=== PATIENT | female | born 1945 | race Caucasian/White ===

== ENCOUNTER → 2018-11-27 | Outpatient (CLI) | payer SELFPAY ==
[2018-11-27 10:10] LABS: APPEARANCE,URINE SLIGHTLY-CLOUDY; BILIRUBIN,URINE NEGATIVE (NEGATIVE); COLOR,URINE YELLOW; GLUCOSE, URINE NEGATIVE (NEGATIVE); KETONES,URINE TRACE mg/dL (NEGATIVE); LEUKOCYTE ESTERASE,URINE NEGATIVE (NEGATIVE); NITRITE,URINE NEGATIVE (NEGATIVE); PROTEIN,URINE NEGATIVE (NEGATIVE); URINE SPECIFIC GRAVITY 1.025; UROBILINOGEN,URINE NEGATIVE mg/dL (<2.0)
[2018-11-27 10:21] LABS: ANION GAP 10 (5-19); BLOOD UREA NITROGEN 21 mg/dL (7-20); CALCIUM 9.1 mg/dL (8.4-10.2); CARBON DIOXIDE 25 mmol/L (22-30); CHLORIDE 107 mmol/L (98-107); GLUCOSE 115 mg/dL (75-110); POTASSIUM 4.5 mmol/L (3.6-5.0); SODIUM 142.4 mmol/L (137-145); URIC ACID 5.7 mg/dL (2.5-7.5)
== END ==
LOC: LAB 09:34
PROVIDERS: ATTEND Internal Medicine Cardiovascular Disease
DX: I10 Essential (primary) hypertension (principal); I47.1 Supraventricular tachycardia; E03.9 Hypothyroidism, unspecified; R25.2 Cramp and spasm; Z79.899 Other long term (current) drug therapy; R11.2 Nausea with vomiting, unspecified; R10.9 Unspecified abdominal pain; N20.0 Calculus of kidney
CPT/HCPCS: 36415; 80048; 81001; 82306; 82330; 83735; 84443; 84550; 87086

== ENCOUNTER 2019-02-01 12:00 | Observation (INO) | payer MEDICARE, BC ==
--- NOTE | 2019-02-01 12:18 | ER Document Report ---
ED General - General Stated Complaint: GENERAL WEAKNESS Time Seen by Provider: 02/01/19 12:02 Notes: Patient is a 73 year old female with history of breast cancer in remission that presents to the emergency department for chief complaint of difficulty finding words. The patient was in the courthouse today, presenting patients to the religion teacher, and was having difficulty reading and finding words. This is not normal for her, and the religion teacher actually came into the emergency department, and verify that she was having difficulty speaking. It seemingly has improved although she is still at times during interview and history taking having some trouble finding words. She denies having any slurred speech, blurred vision, loss of vision, numbness, weakness or facial droop associated with this. She reports you to history of a brain metastases from breast cancer, that was treated with gamma knife, but has not had recurrence, and she actually had a tumor that was removed, or is doing well, but she does Fear she may have developed a new one, and that is our biggest concern at this time. She denies having Headache, nausea, chest pain, shortness of breath or difficulty breathing at this time. No other complaints. Past medical history: breast cancer with metastasis, small cell lung carcinoma past surgical history:mastectomy, brain surgery social history: can I use tobacco, alcohol or illicit drug use. Family History: Reviewed and noncontributory for presenting illness Allergies: Reviewed, see documented allergy list. REVIEW OF SYSTEMS: Other than noted above, the 12 point review of systems was reviewed with the patient and were negative, all pertinent findings are included in the HPI. PHYSICAL EXAMINATION: Vital signs reviewed, nursing noted reviewed. GENERAL: Well-appearing, well-nourished and in no acute distress. HEAD: Atraumatic, normocephalic. EYES: Eyes appear normal, extraocular movements intact, sclera anicteric, conjunctiva are normal. ENT: nares patent, oropharynx clear without exudates. Moist mucous membranes. NECK: Normal range of motion, supple without lymphadenopathy LUNGS: Breath sounds clear to auscultation bilaterally and equal. No wheezes rales or rhonchi. HEART: Regular rate and rhythm without murmurs ABDOMEN: Soft, nontender, normoactive bowel sounds. No rebound, guarding, or rigidity. No masses appreciated. EXTREMITIES: Nontender, good range of motion, no pitting or edema. NEUROLOGICAL: Mild intermittent expressive aphasia noted on exam. NIHSS: 1. Moves all extremities spontaneously Motor and sensory grossly intact on exam. PSYCH: Normal mood, normal affect. SKIN: Warm, Dry, normal turgor, no rashes or lesions noted on exposed skin TRAVEL OUTSIDE OF THE [place] IN LAST 30 DAYS: No - Related Data Allergies/Adverse Reactions: bee venom protein (honey bee) Allergy (Severe, Verified 02/01/19 14:19) Anaphylaxis acetaminophen [From Tylenol] Allergy (Verified 02/01/19 14:19) morphine Adverse Reaction (Verified 02/01/19 14:19) Hallucinations Past Medical History - Social History Smoking Status: Never Smoker Family History: Reviewed & Not Pertinent Physical Exam - Vital signs Vitals: Pulse Resp BP Pulse Ox 76 18 103/64 98 02/01/19 12:01 02/01/19 12:01 02/01/19 12:01 02/01/19 12:01 Course - Re-evaluation Re-evalutation: Patient seen and examined, Vital Signs reviewed, patient had mild intermittent expressive Aphasia on exam, but seemingly was improved promote was witnessed at the [facility]. she otherwise appeared well on exam, no other focal neurological deficits. Patient has worked out for possible Stroke versus TIA How you Didier, her CT of her head was negative, her work up otherwise was negative as well. I'm froy evaluation, the patient's not having any recurrence of symptoms, however I do feel the patient should be admitted for further evaluation including MRI and carotid duplex Imaging and possible echocardiogram, and risk factor stratification, it is still possible she may have a lesion on the brain that is causing her symptoms, which MRI would further delineate. I discussed this with the patient and the patient's who is at bedside, and they agree with this plan of care. Then discuss the case with the admitting physician assistant cross country coach, who agreed to see the patient and admit them for further evaluation. Head MRI 02/01/19 00:00 IMPRESSION: 1. No acute intracranial abnormality. 2. No evidence of recent CVA. 3. Mild chronic small vessel changes. EVIDENCE OF ACUTE STROKE: NO. Chest X-Ray 02/01/19 12:17 IMPRESSION: There is bandlike scarring or consolidation of the right upper lobe, possibly related to treated malignancy given the presence of a port catheter. There is no acute abnormality of the lungs. Comparison to prior imaging and/or CT would be helpful to further evaluate depending upon clinical presentation. Cardiomegaly. Head CT 02/01/19 12:17 IMPRESSION: No acute intracranial pathology. Small vessel white matter disease. EVIDENCE OF ACUTE STROKE: NO. Laboratory 02/01/19 02/01/19 02/01/19 12:12 12:12 12:12 WBC 4.1 RBC 3.87 Hgb 11.6 L Hct 35.3 L MCV 91 MCH 30.1 MCHC 33.0 RDW 15.2 H Plt Count 255 Seg Neutrophils % 71.6 Lymphocytes % 10.0 L Monocytes % 15.6 H Eosinophils % 2.1 Basophils % 0.7 Absolute Neutrophils 2.9 Absolute Lymphocytes 0.4 L Absolute Monocytes 0.6 Absolute Eosinophils 0.1 Absolute Basophils 0.0 PT 12.6 INR 0.94 APTT 26.7 Sodium 138.9 Potassium 4.7 Chloride 101 Carbon Dioxide 27 Anion Gap 11 BUN 32 H Creatinine 1.02 Est GFR ( Amer) > 60 Est GFR (Non-Af Amer) 53 L Glucose 104 Calcium 9.1 Total Bilirubin 0.3 Direct Bilirubin 0.2 Neonat Total Bilirubin Not Reportable Neonat Direct Bilirubin Not Reportable Neonat Indirect Bili Not Reportable AST 32 ALT 50 Alkaline Phosphatase 104 Troponin I Total Protein 6.9 Albumin 4.2 TSH 02/01/19 02/01/19 12:12 12:12 WBC RBC Hgb Hct MCV MCH MCHC RDW Plt Count Seg Neutrophils % Lymphocytes % Monocytes % Eosinophils % Basophils % Absolute Neutrophils Absolute Lymphocytes Absolute Monocytes Absolute Eosinophils Absolute Basophils PT INR APTT Sodium Potassium Chloride Carbon Dioxide Anion Gap BUN Creatinine Est GFR ( Amer) Est GFR (Non-Af Amer) Glucose Calcium Total Bilirubin Direct Bilirubin Neonat Total Bilirubin Neonat Direct Bilirubin Neonat Indirect Bili AST ALT Alkaline Phosphatase Troponin I < 0.012 Total Protein Albumin TSH < 0.01 L - Vital Signs Vital signs: Temp Pulse Resp BP Pulse Ox 97.7 F 79 20 124/72 98 02/01/19 20:33 02/01/19 20:33 02/01/19 20:33 02/01/19 20:33 02/01/19 20:33 - Laboratory Result Diagrams: 02/01/19 12:12 02/01/19 12:12 Laboratory results interpreted by me: 02/01/19 02/01/19 02/01/19 12:12 12:12 12:12 Hgb 11.6 L Hct 35.3 L RDW 15.2 H Lymphocytes % 10.0 L Monocytes % 15.6 H Absolute Lymphocytes 0.4 L BUN 32 H Est GFR (Non-Af Amer) 53 L TSH < 0.01 L - EKG Interpretation by Me Additional EKG results interpreted by me: EKG demonstrates sinus rhythm with a ventricular rate of 66 bpm, normal axis, normal intervals, no evidence of acute ischemia in this EKG, no prior available for comparison at this time. Discharge - Discharge Clinical Impression: Expressive aphasia Condition: Stable Disposition: ADMITTED INPATIENT Admitting Provider: Jose Miguel (Hospitalist) - Edwin Osullivan PA-C Unit Admitted: [facility]
[2019-02-01 12:32] LABS: ABSOLUTE EOSINOPHILS # (AUTO) 0.1 10^3/uL (0.0-0.6); ABSOLUTE LYMPHOCYTES (AUTO) 0.4 10^3/uL (0.5-4.7); ABSOLUTE MONOCYTES (AUTO) 0.6 10^3/uL (0.1-1.4); ABSOLUTE NEUT (AUTO) 2.9 10^3/uL (1.7-8.2); BASOPHILS % (AUTO) 0.7 % (0-2); EOSINOPHILS % (AUTO) 2.1 % (0-6); HEMATOCRIT 35.3 % (36.0-47.0); HEMOGLOBIN 11.6 g/dL (12.0-15.5); MEAN CORPUSCULAR HEMOGLOBIN 30.1 pg (27.0-33.4); MEAN CORPUSCULAR VOLUME 91 fl (80-97); MONOCYTES % (AUTO) 15.6 % (3-13); PLATELET COUNT 255 10^3/uL (150-450); RED BLOOD COUNT 3.87 10^6/uL (3.72-5.28); RED CELL DISTRIBUTION WIDTH 15.2 % (11.5-14.0); SEGMENTED NEUTROPHILS % (AUTO) 71.6 % (42-78); TOTAL CELLS COUNTED % (AUTO) 100 %; WHITE BLOOD COUNT 4.1 10^3/uL (4.0-10.5)
[2019-02-01 12:38] LABS: INTERNATIONAL RATION (INR) 0.94; PROTHROMBIN TIME 12.6 SEC (11.4-15.4)
[2019-02-01 12:39] LABS: PARTIAL THROMBOPLASTIN TIME 26.7 SEC (23.5-35.8)
--- NOTE | 2019-02-01 12:51 | RADIOLOGY REPORT (SQ) ---
EXAM DESCRIPTION: CHEST SINGLE VIEW COMPLETED DATE/TIME: 02/01/2019 12:40 pm REASON FOR STUDY: expressive aphasia, transient COMPARISON: Cardiomegaly. EXAM PARAMETERS: NUMBER OF VIEWS: One view. TECHNIQUE: Single frontal radiographic view of the chest acquired. RADIATION DOSE: NA LIMITATIONS: None. FINDINGS: LUNGS AND PLEURA: There is bandlike suprahilar scarring or consolidation of the right uppe r lobe. MEDIASTINUM AND HILAR STRUCTURES: No masses. Contour normal. HEART AND VASCULAR STRUCTURES: Cardiomegaly. BONES: No acute findings. HARDWARE: None in the chest. OTHER: Right chest port catheter. IMPRESSION: There is bandlike scarring or consolidation of the right upper lobe, possibly related to treated malignancy given the presence of a port catheter. There is no acute abnormality of the lung s. Comparison to prior imaging and/or CT would be helpful to further evaluate depending upon clinica l presentation. Cardiomegaly. TECHNICAL DOCUMENTATION: JOB ID: [id number] [employer]- All Rights Reserved Reading location - IP/workstation name: [email or web address]
[2019-02-01 12:56] LABS: ALBUMIN 4.2 g/dL (3.5-5.0); ALKALINE PHOSPHATASE 104 U/L (38-126); ANION GAP 11 (5-19); ASPARTATE AMINO TRANSFERASE 32 U/L (14-36); BILIRUBIN,DIRECT 0.2 mg/dL (0.0-0.4); BILIRUBIN,TOTAL 0.3 mg/dL (0.2-1.3); BLOOD UREA NITROGEN 32 mg/dL (7-20); CALCIUM 9.1 mg/dL (8.4-10.2); CARBON DIOXIDE 27 mmol/L (22-30); CHLORIDE 101 mmol/L (98-107); GLUCOSE 104 mg/dL (75-110); POTASSIUM 4.7 mmol/L (3.6-5.0); TOTAL PROTEIN 6.9 g/dL (6.3-8.2)
--- NOTE | 2019-02-01 12:57 | RADIOLOGY REPORT (SQ) ---
EXAM DESCRIPTION: CT HEAD WITHOUT COMPLETED DATE/TIME: 02/01/2019 12:45 pm REASON FOR STUDY: expressive aphasia, transient COMPARISON: None. TECHNIQUE: Axial images acquired through the brain without intravenous contrast. Images reviewed wi th bone, brain and subdural windows. Additional sagittal and coronal reconstructions were generated. Images stored on PACS. All CT scanners at this facility use dose modulation, iterative reconstruction, and/or weight based d osing when appropriate to reduce radiation dose to as low as reasonably achievable (ALARA). [facility]: Dose Right [facility]: CareDose [facility]: Dose Right [facility]: Teradose 4D [facility]: [email or web address] RADIATION DOSE: CT Rad equipment meets quality standard of care and radiation dose reduction techniq ues were employed. CTDIvol: 53.2 mGy. DLP: 1017 mGy-cm. mGy. LIMITATIONS: None. FINDINGS: VENTRICLES: Normal size and contour. CEREBRUM: No masses. No hemorrhage. No midline shift. No evidence for acute infarction. Few scatte red areas of low density in the white matter most likely chronic small vessel ischemic changes. CEREBELLUM: No masses. No hemorrhage. No alteration of density. No evidence for acute infarction. EXTRAAXIAL SPACES: No fluid collections. No masses. ORBITS AND GLOBE: No intra- or extraconal masses. Normal contour of globe without masses. CALVARIUM: No fracture. PARANASAL SINUSES: No fluid or mucosal thickening. SOFT TISSUES: No mass or hematoma. OTHER: No other significant finding. IMPRESSION: No acute intracranial pathology. Small vessel white matter disease. EVIDENCE OF ACUTE STROKE: NO. COMMENT: Quality ID # [id number]: Final reports with documentation of one or more dose reduction techniques (e.g., Automated exposure control, adjustment of the mA and/or kV according to patient size, use of iterative reconstruction technique) TECHNICAL DOCUMENTATION: JOB ID: [id number] [employer]- All Rights Reserved Reading location - IP/workstation name: [email or web address]
--- NOTE | 2019-02-01 13:18 | EKG REPORT ---
SEVERITY:- NORMAL ECG - SINUS RHYTHM : Confirmed by: Sadi Culver MD 01-Feb-2019 13:17:47
[2019-02-01] MEDS ORDERED: MAGNESIUM HYDROXIDE SUSP 30 ML UDCUP PO PRN (16:50)
[2019-02-01] MEDS ORDERED: ONDANSETRON 4 MG TAB.RAPDIS PO PRN (16:50)
[2019-02-01] MEDS ORDERED: ASPIRIN 325 MG TABLET PO ONE (17:09)
[2019-02-01] MEDS ORDERED: LORAZEPAM 1 MG TABLET PO PRN ×3 (17:10→18:27)
[2019-02-01] MEDS ORDERED: CYCLOBENZAPRINE HCL 10 MG TABLET PO PRN (17:20)
--- NOTE | 2019-02-01 17:54 | PDOC H&P ---
History of Present Illness Admission Date/PCP: 02/01/19 15:02 JOI VALLE MD 02/01/2019 she is admitted today for TIA. Patient complains of: Expressive a aphasia this morning, dysarthria, that lasted 2 to 3 hours. History of Present Illness: GIANFRANCO LAGOS is a 73 year old female who was at work this morning at [employer], when she had an episode where she was unable to say what she wanted to say. Patient states that when she was talking that some of it was "garbled". Patient also states that she had difficulty reading because the print appeared to be jumbled. Patient denies any weakness of extremities, denies headache, no nausea no vomiting, no photophobia no diplopia. No nuchal rigidity. No chest pain no shortness of breath. In the emergency room the symptoms have resolved about 98% but she will occasionally say a word that is slurred. This is a new complaint for the patient. She is in no distress now. Past Medical History Cardiac Medical History: Reports: Hypertension Endocrine Medical History: Reports: Hypothyroidism Malignancy Medical History: Reports: Breast Cancer, Lung Cancer GI Medical History: Reports: None Psychiatric Medical History: Reports: None Traumatic Medical History: Reports: None Past Surgical History Past Surgical History: Reports: Mastectomy, Thyroidectomy, Other - Brain tumor removed Social History Smoking Status: Never Smoker Family History Parental Family History Reviewed: No Children Family History Reviewed: No Sibling(s) Family History Reviewed.: No Medication/Allergy Home Medications: Amlodipine Besylate [Norvasc 5 mg Tablet] 5 mg PO DAILY 02/01/19 Benazepril HCl [Lotensin 20 mg Tablet] 20 mg PO BID 02/01/19 Carvedilol [Coreg 25 mg Tablet] 25 mg PO Q12 02/01/19 Cyclobenzaprine HCl [Flexeril 10 mg Tablet] 10 mg PO DAILYP PRN 02/01/19 Hydrochlorothiazide [Hydrodiuril 12.5 mg Tablet] 12.5 mg PO DAILY 02/01/19 Levothyroxine Sodium [Synthroid 0.1 mg Tablet] 0.1 mg PO Q6AM 02/01/19 Mirabegron [Myrbetriq] 50 mg PO DAILY 02/01/19 Allergies/Adverse Reactions: bee venom protein (honey bee) Allergy (Severe, Verified 02/01/19 14:19) Anaphylaxis acetaminophen [From Tylenol] Allergy (Verified 02/01/19 14:19) morphine Adverse Reaction (Verified 02/01/19 14:19) Hallucinations Review of Systems Constitutional: ABSENT: chills, fever(s), headache(s), weight gain, weight loss Eyes: ABSENT: visual disturbances Breasts: PRESENT: as per HPI Cardiovascular: PRESENT: as per HPI Respiratory: PRESENT: as per HPI Gastrointestinal: PRESENT: as per HPI Neurological: PRESENT: abnormal speech, confusion Psychiatric: PRESENT: as per HPI Physical Exam Vital Signs: Temp Pulse Resp BP Pulse Ox 76 20 126/70 H 95 02/01/19 12:01 02/01/19 15:01 02/01/19 15:01 02/01/19 15:01 General appearance: PRESENT: no acute distress Head exam: PRESENT: atraumatic, normocephalic Eye exam: PRESENT: conjunctiva pink, EOMI, PERRLA. ABSENT: scleral icterus Neck exam: ABSENT: carotid bruit, JVD, lymphadenopathy, thyromegaly Respiratory exam: PRESENT: clear to auscultation anca. ABSENT: rales, rhonchi, wheezes Cardiovascular exam: PRESENT: RRR. ABSENT: diastolic murmur, rubs, systolic murmur Vascular exam: PRESENT: normal capillary refill Neurological exam: PRESENT: alert, awake, oriented to person, oriented to place, oriented to time, oriented to situation, CN II-XII grossly intact. ABSENT: motor sensory deficit Psychiatric exam: PRESENT: appropriate affect, normal mood. ABSENT: homicidal i deation, suicidal ideation Results Laboratory Results: 02/01/19 12:12 02/01/19 12:12 02/01/19 02/01/19 12:12 12:12 WBC 4.1 RBC 3.87 Hgb 11.6 L Hct 35.3 L MCV 91 MCH 30.1 MCHC 33.0 RDW 15.2 H Plt Count 255 Seg Neutrophils % 71.6 Lymphocytes % 10.0 L Monocytes % 15.6 H Eosinophils % 2.1 Basophils % 0.7 Absolute Neutrophils 2.9 Absolute Lymphocytes 0.4 L Absolute Monocytes 0.6 Absolute Eosinophils 0.1 Absolute Basophils 0.0 Sodium 138.9 Potassium 4.7 Chloride 101 Carbon Dioxide 27 Anion Gap 11 BUN 32 H Creatinine 1.02 Est GFR ( Amer) > 60 Est GFR (Non-Af Amer) 53 L Glucose 104 Calcium 9.1 Total Bilirubin 0.3 AST 32 Alkaline Phosphatase 104 Total Protein 6.9 Albumin 4.2 02/01/19 12:12 Troponin I < 0.012 Impressions: Chest X-Ray 02/01/19 12:17 IMPRESSION: There is bandlike scarring or consolidation of the right upper lobe, possibly related to treated malignancy given the presence of a port catheter. There is no acute abnormality of the lungs. Comparison to prior imaging and/or CT would be helpful to further evaluate depending upon clinical presentation. Cardiomegaly. Head CT 02/01/19 12:17 IMPRESSION: No acute intracranial pathology. Small vessel white matter disease. EVIDENCE OF ACUTE STROKE: NO. Assessment and Plan - Diagnosis (1) TIA (transient ischemic attack) Is this a current diagnosis for this admission?: Yes Plan: Patient's TIA has resolved. In a 30-minute interview the patient has had to be 1 or 2 words that seem to be somewhat slurred, although this is slight (2) HTN (hypertension) Is this a current diagnosis for this admission?: Yes Plan: His blood pressure will be controlled closely that the patient does not become hypotensive or hypertensive (3) Breast cancer Is this a current diagnosis for this admission?: Yes Plan: Patient has had a left mastectomy in 1 year of chemotherapy for breast cancer (4) Lung cancer Is this a current diagnosis for this admission?: Yes Plan: Patient has had 2 rounds of chemotherapy and 30 rounds of radiation therapy for lung cancer (5) Hypothyroid Is this a current diagnosis for this admission?: Yes Plan: Patient has had a total thyroidectomy and is currently on Synthroid (6) Expressive aphasia Is this a current diagnosis for this admission?: Yes Plan: Patient has no evidence of expressive aphasia at this time - Time Time Spent with patient: 35 or more minutes - Patient was told that this neurologic event could worsen over the next 24 hours, the ischemic area could extend in size. The ischemic area could become hemorrhagic. DR. Gillespie and I have discussed the pros and cons risk and benefits concerning blood thinners anticoagulants antiplatelets and so forth. We will get the patient up every 6 hours to ambulate to the chair in the bathroom, compression hose will be placed patient. Patient will have a work-up insisting of MRI of the brain and carotid Doppler ultrasounds, as well as echocardiogram. Patient and her partner had all their questions answered satisfied with today's visit. Patient will be admitted op status
[2019-02-01] MEDS ORDERED: ASPIRIN 325 MG TABLET ONE (18:40)
--- NOTE | 2019-02-01 20:30 | RADIOLOGY REPORT (SQ) ---
EXAM DESCRIPTION: MRI HEAD WITHOUT COMPLETED DATE/TIME: 02/01/2019 7:51 pm REASON FOR STUDY: TIA COMPARISON: 02/01/2019 CT. TECHNIQUE: Multiplanar imaging includes non-contrasted T1, T2, FLAIR, and diffusion with ADC map seq uences. Images stored on PACS. LIMITATIONS: None. FINDINGS: ANATOMY: No anomalies. Normal vascular flow voids. Pituitary fossa normal. CSF SPACES: Age-appropriate. No extra-axial hemorrhage or gross mass. CEREBRUM: Relatively mild spotty small vessel changes, best demonstrated on FLAIR sequence. Limited by motion. No evidence of hemorrhage or mass or shift or hydrocephalus. POSTERIOR FOSSA: No signal alteration. No hemorrhage. No edema, masses or mass effect. Internal camille tory canals, cerebello-pontine angles, mastoids normal. DIFFUSION IMAGING: Negative for acute or sub-acute infarction. ORBITS: No masses. Globes normal. PARANASAL SINUSES: No fluid levels. OTHER: No other significant finding. IMPRESSION: 1. No acute intracranial abnormality. 2. No evidence of recent CVA. 3. Mild chronic small vessel changes. EVIDENCE OF ACUTE STROKE: NO. TECHNICAL DOCUMENTATION: JOB ID: [id number] [employer]- All Rights Reserved Reading location - IP/workstation name: [email or web address]
[2019-02-02] MEDS: CARVEDILOL 12.5 MG TABLET PO SCH ×2 (00:20→09:26)
[2019-02-02] MEDS: BENAZEPRIL HCL 20 MG TABLET PO SCH ×2 (00:21→09:26)
[2019-02-02 04:35] LABS: ABSOLUTE EOSINOPHILS # (AUTO) 0.1 10^3/uL (0.0-0.6); ABSOLUTE LYMPHOCYTES (AUTO) 0.4 10^3/uL (0.5-4.7); ABSOLUTE MONOCYTES (AUTO) 0.6 10^3/uL (0.1-1.4); ABSOLUTE NEUT (AUTO) 1.9 10^3/uL (1.7-8.2); BASOPHILS % (AUTO) 0.6 % (0-2); EOSINOPHILS % (AUTO) 3.3 % (0-6); HEMATOCRIT 31.5 % (36.0-47.0); HEMOGLOBIN 10.7 g/dL (12.0-15.5); LYMPHOCYTES % (AUTO) 12.8 % (13-45); MEAN CORPUSCULAR HEMOGLOBIN 30.7 pg (27.0-33.4); MEAN CORPUSCULAR VOLUME 90 fl (80-97); MONOCYTES % (AUTO) 18.8 % (3-13); PLATELET COUNT 215 10^3/uL (150-450); RED BLOOD COUNT 3.49 10^6/uL (3.72-5.28); RED CELL DISTRIBUTION WIDTH 14.8 % (11.5-14.0); SEGMENTED NEUTROPHILS % (AUTO) 64.5 % (42-78); TOTAL CELLS COUNTED % (AUTO) 100 %
[2019-02-02 05:02] LABS: ANION GAP 7 (5-19); BLOOD UREA NITROGEN 27 mg/dL (7-20); CALCIUM 8.7 mg/dL (8.4-10.2); CARBON DIOXIDE 28 mmol/L (22-30); CHLORIDE 105 mmol/L (98-107); GLUCOSE 91 mg/dL (75-110)
[2019-02-02] MEDS ORDERED: LEVOTHYROXINE SODIUM 0.1 MG TABLET PO SCH (06:00)
[2019-02-02] MEDS ORDERED: HYDROCHLOROTHIAZIDE 12.5 MG TABLET PO SCH (08:00)
--- NOTE | 2019-02-02 09:50 | Progress Note Acknowledgement ---
Progress Note Acknowledgement Progess Note Acknowledgement: I, the undersigned member of the medical staff with appropriate privileges and with supervisory authority over [ PAC ], a dependent practice allied health professional, acknowledge that I have reviewed the progress notes entered on this patient, and in my professional judgment believe that the assessment made and/or any care evidenced was appropriate
--- NOTE | 2019-02-02 09:56 | PDOC PROGRESS REPORT ---
Subjective Progress Note for:: 02/02/19 Reason For Visit: TIA,S/P BREAST CANCER,S/P LUNG CANCER 02/02/2019 she had a good night last night following her TIA yesterday patient has had no recurrence of any TIA or CVA symptoms. Patient does state that she had one episode where she hallucinated about a red pen, I am not exactly sure what this was, but I do not think it represented a TIA. MRI last night shows only microvascular changes, no metastatic disease, no CVA. Pending today as an echo and carotid Dopplers patient is in no distress hopefully will be discharged later today. Patient will see her neurologist at [facility] for follow-up Physical Exam Vital Signs: Temp Pulse Resp BP Pulse Ox 97.5 F 80 18 129/63 H 99 02/02/19 08:18 02/02/19 08:18 02/02/19 08:18 02/02/19 08:18 02/02/19 08:18 Intake & Output 02/01/19 02/02/19 02/03/19 06:59 06:59 06:59 Intake Total 0 Balance 0 Weight 88.7 kg General appearance: PRESENT: no acute distress, well-developed, well-nourished Head exam: PRESENT: atraumatic, normocephalic Respiratory exam: PRESENT: clear to auscultation anca. ABSENT: rales, rhonchi, wheezes Cardiovascular exam: PRESENT: RRR. ABSENT: diastolic murmur, rubs, systolic murmur Neurological exam: PRESENT: alert, awake, oriented to person, oriented to place, oriented to time, oriented to situation, CN II-XII grossly intact, other - No focal deficits. ABSENT: motor sensory deficit Psychiatric exam: PRESENT: appropriate affect, normal mood. ABSENT: homicidal ideation, suicidal ideation Results Laboratory Results: 02/02/19 03:26 02/02/19 03:26 02/01/19 02/01/19 02/01/19 12:12 12:12 12:12 WBC 4.1 RBC 3.87 Hgb 11.6 L Hct 35.3 L MCV 91 MCH 30.1 MCHC 33.0 RDW 15.2 H Plt Count 255 Seg Neutrophils % 71.6 Lymphocytes % 10.0 L Monocytes % 15.6 H Eosinophils % 2.1 Basophils % 0.7 Absolute Neutrophils 2.9 Absolute Lymphocytes 0.4 L Absolute Monocytes 0.6 Absolute Eosinophils 0.1 Absolute Basophils 0.0 Sodium 138.9 Potassium 4.7 Chloride 101 Carbon Dioxide 27 Anion Gap 11 BUN 32 H Creatinine 1.02 Est GFR ( Amer) > 60 Est GFR (Non-Af Amer) 53 L Glucose 104 Calcium 9.1 Magnesium Total Bilirubin 0.3 AST 32 Alkaline Phosphatase 104 Total Protein 6.9 Albumin 4.2 TSH < 0.01 L 02/02/19 02/02/19 03:26 03:26 WBC 3.0 L RBC 3.49 L Hgb 10.7 L Hct 31.5 L MCV 90 MCH 30.7 MCHC 34.0 RDW 14.8 H Plt Count 215 Seg Neutrophils % 64.5 Lymphocytes % 12.8 L Monocytes % 18.8 H Eosinophils % 3.3 Basophils % 0.6 Absolute Neutrophils 1.9 Absolute Lymphocytes 0.4 L Absolute Monocytes 0.6 Absolute Eosinophils 0.1 Absolute Basophils 0.0 Sodium 140.3 Potassium 4.0 Chloride 105 Carbon Dioxide 28 Anion Gap 7 BUN 27 H Creatinine 0.98 Est GFR ( Amer) > 60 Est GFR (Non-Af Amer) 56 L Glucose 91 Calcium 8.7 Magnesium 1.9 Total Bilirubin AST Alkaline Phosphatase Total Protein Albumin TSH 02/01/19 12:12 Troponin I < 0.012 Impressions: Head MRI 02/01/19 00:00 IMPRESSION: 1. No acute intracranial abnormality. 2. No evidence of recent CVA. 3. Mild chronic small vessel changes. EVIDENCE OF ACUTE STROKE: NO. Chest X-Ray 02/01/19 12:17 IMPRESSION: There is bandlike scarring or consolidation of the right upper lobe, possibly related to treated malignancy given the presence of a port catheter. There is no acute abnormality of the lungs. Comparison to prior imaging and/or CT would be helpful to further evaluate depending upon clinical presentation. Cardiomegaly. Head CT 02/01/19 12:17 IMPRESSION: No acute intracranial pathology. Small vessel white matter disease. EVIDENCE OF ACUTE STROKE: NO. Assessment and Plan - Diagnosis (1) TIA (transient ischemic attack) Is this a current diagnosis for this admission?: Yes Plan: Patient's TIA has resolved. In a 30-minute interview the patient has had to be 1 or 2 words that seem to be somewhat slurred, although this is slight 02/02/2019 TIA is completely resolved, no residual deficits (2) HTN (hypertension) Is this a current diagnosis for this admission?: Yes Plan: His blood pressure will be controlled closely that the patient does not become hypotensive or hypertensive agraffe 02/02/2019 blood pressure well controlled, 129/63 patient taking her medications from home she refused any meds from the hospital (3) Breast cancer Is this a current diagnosis for this admission?: Yes Plan: Patient has had a left mastectomy in 1 year of chemotherapy for breast cancer 02/02/2019 no indication to study this she has been followed at [facility] (4) Lung cancer Is this a current diagnosis for this admission?: Yes Plan: Patient has had 2 rounds of chemotherapy and 30 rounds of radiation therapy for lung cancer 02/02/2019 no indication to study this problem since she is being followed at [facility] (5) Hypothyroid Is this a current diagnosis for this admission?: Yes Plan: Patient has had a total thyroidectomy and is currently on Synthroid 02/02/2019 patient's TSH is low at 0.01, will talk to the patient about her Synthroid dosage (6) Expressive aphasia Is this a current diagnosis for this admission?: Yes Plan: Patient has no evidence of expressive aphasia at this time 02/02/2019 no expressive or receptive aphasia today. No dysarthria - Time Time Spent with patient: 25-34 minutes - Planning to get a cardiac echo today and a carotid Doppler ultrasound today, probable discharge following those studies on 325 aspirin daily
[2019-02-02] MEDS ORDERED: (PENDING PHARMACY ID) (Mirabegron [Myrbetriq] 50 MG) PO SCH (10:00)
[2019-02-02] MEDS ORDERED: AMLODIPINE BESYLATE 5 MG TABLET PO SCH (10:00)
--- NOTE | 2019-02-02 13:50 | XCELERA REPORT ---
[address] [address] Transthoracic Echocardiogram Report Name: GIANFRANCO LAGOS Age: 73 yrs Gender: Female : 1945 Patient Status: Inpatient Patient Location: [address] [place], [place] [address] Study Date: 02/02/2019 10:15 AM Height: 62 in Weight: 194 lb BSA: 1.9 m2 Procedure: A two-dimensional transthoracic echocardiogram with color flow and Doppler was performed. The study was technically limited with all images being suboptimal in quality. The study was technically difficult with many images being suboptimal in quality. Reason For Study: TIA , Tomorrow AM is ok History: TIA. Ordering Physician: SILVIA BREAUX Performed By: Jenn Enamorado Interpretation Summary There is no obvious cardiac source of embolus noted on this transthoracic echocardiogram. Follow-up with a NICOLAS is suggested if cardiac source is still suspected. The left ventricle is normal in size. There is normal left ventricular wall thickness. LV EF is 65% The left ventricular ejection fraction is within normal limits. Doppler measurements suggest impaired left ventricular relaxation, which is associated with grade I/IV or mild diastolic dysfunction The left ventricular wall motion is normal. There is no thrombus. Probably no ASD,VSD,or PFO seen The right ventricle is not well visualized secondary to technical limitations The right atrium is normal. The left atrial size is normal. There is no evidence of mitral valve prolapse. There is no vegetation seen on the mitral valve. There is no mitral valve stenosis. There is no mitral regurgitation noted. There is no aortic valvular vegetation. There is no aortic valve stenosis There is no LVOT obstruction. No aortic regurgitation is present. There is no tricuspid stenosis. No tricuspid regurgitation. Unable to calculate RVSP due to lack of TR jet. There is no pulmonic valvular stenosis. There is no pulmonic valvular regurgitation. The aortic root is normal size. The inferior vena cava appeared normal and decreased > 50% with respiration (RAP 5-10 mmHg) There is no pericardial effusion. There is no obvious cardiac source of embolus noted on this transthoracic echocardiogram. Follow-up with a NICOLAS is suggested if cardiac source is still suspected MMode/2D Measurements & Calculations RVDd: 3.6 cm LVIDd: 4.5 cm FS: 33.1 % Ao root diam: 3.4 cm IVSd: 0.85 cm LVIDs: 3.0 cm EDV(Teich): 90.6 ml Ao root area: 9.0 cm2 LVPWd: 0.91 cm ESV(Teich): 34.6 ml EF(Teich): 61.8 % Doppler Measurements & Calculations MV E max hermila: MV dec slope: Ao V2 max: LV V1 max P.2 cm/sec 374.7 cm/sec2 117.5 cm/sec 3.9 mmHg MV A max hermila: MV dec time: 0.17 sec Ao max PG: LV V1 max: 88.9 cm/sec 5.5 mmHg 99.3 cm/sec MV E/A: 0.73 PA V2 max: 106.1 cm/sec PA max P.5 mmHg Left Ventricle The left ventricle is normal in size. There is normal left ventricular wall thickness. LV EF is 65%. The left ventricular ejection fraction is within normal limits. Doppler measurements suggest impaired left ventricular relaxation, which is associated with grade I/IV or mild diastolic dysfunction. The left ventricular wall motion is normal. There is no thrombus. Probably no ASD,VSD,or PFO seen. Right Ventricle The right ventricle is not well visualized secondary to technical limitations. Atria The right atrium is normal. Right atrium not well visualized secondary to technical limitations. The left atrial size is normal. Mitral Valve There is no evidence of mitral valve prolapse. There is no vegetation seen on the mitral valve. There is no mitral valve stenosis. There is no mitral regurgitation noted. Aortic Valve There is no aortic valvular vegetation. There is no aortic valve stenosis. There is no LVOT obstruction. No aortic regurgitation is present. Tricuspid Valve There is no tricuspid stenosis. No tricuspid regurgitation. Unable to calculate RVSP due to lack of TR jet. Pulmonic Valve There is no pulmonic valvular stenosis. There is no pulmonic valvular regurgitation. Great Vessels The aortic root is normal size. The inferior vena cava appeared normal and decreased > 50% with respiration (RAP 5-10 mmHg). Effusions There is no pericardial effusion. : SILVIA BREAUX > Chante Oconnell
--- NOTE | 2019-02-02 14:17 | RADIOLOGY REPORT (SQ) ---
EXAM DESCRIPTION: CAROTID DOPPLER COMPLETED DATE/TIME: 02/02/2019 11:46 am REASON FOR STUDY: TIA COMPARISON: None TECHNIQUE: Grayscale ultrasound, Doppler velocity and spectra, and color Doppler images acquired of the extra-cranial carotid and vertebral arteries. Images stored on PACS. LIMITATIONS: None. FINDINGS: RIGHT CAROTID CCA Velocities: Within normal limits. ICA Velocities Peak systolic 50 cm/s. End diastolic 18 cm/s. Proximal ICA/CCA peak systolic ratio 0.92. Vessels small plaques in the external carotid artery. LEFT CAROTID CCA Velocities: Within normal limits. ICA Velocities Peak systolic 125 cm/s. End diastolic 0.4 cm/s. Proximal ICA/CCA peak systolic ratio 2.03. There are scattered plaques in the proximal ICA. VERTEBRAL ARTERIES: Antegrade flow. Normal waveforms. SUBCLAVIAN ARTERIES: No finding. OTHER: No other significant finding. IMPRESSION: There is 50 to 69% stenosis of the proximal ICA on the left. Less than 50% stenosis on the right. COMMENT: Quality ID #[id number]: Velocity criteria are extrapolated from the diameter data as defined by t he Society of Radiologists in Ultrasound Consensus Conference. Radiology 2003: 229; 340-346. TECHNICAL DOCUMENTATION: JOB ID: [id number] [employer]- All Rights Reserved Reading location - IP/workstation name: [email or web address]
[2019-02-02 14:49] VITALS: BP 132/68
== END 2019-02-02 15:13 | disposition home or self-care (01) ==
LOC: ER 12:00 → INTOOBSV 15:02 → EH 15:02 → 3N 17:00
PROVIDERS: ADMIT Hospitalist; ATTEND Hospitalist
DX: G45.9 Transient cerebral ischemic attack, unspecified (principal); I10 Essential (primary) hypertension; C50.912 Malignant neoplasm of unspecified site of left female breast; C78.01 Secondary malignant neoplasm of right lung; Z90.12 Acquired absence of left breast and nipple; R47.01 Aphasia; E03.9 Hypothyroidism, unspecified; R90.82 White matter disease, unspecified; Z79.899 Other long term (current) drug therapy; Z92.3 Personal history of irradiation; Z85.841 Personal history of malignant neoplasm of brain
CPT/HCPCS: 93005; 99285; 36415 ×2; 83735; 84443; 85025 ×2; 85610; 85730; 80048; 80053; 84484; 93306; 93880; 70551; 71045; 70450; 93010; G0378 ×3; A9270 ×2

== ENCOUNTER → 2020-02-17 | Outpatient (CLI) | payer MEDICARE, BC ==
--- NOTE | 2020-02-17 16:32 | RADIOLOGY REPORT (SQ) ---
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 RADIONUCLIDE AND DOSE: 25 mCi technetium 99m labeled red blood cells The route of agent administration: Intravenous TECHNIQUE: Following administration of the radionuclide, gated images of the heart are obtained in t hree projections. Left ventricular functional analysis performed. LIMITATIONS: None. FINDINGS: LEFT VENTRICULAR FUNCTION: EJECTION FRACTION: 61%. END-DIASTOLIC VOLUME: 73 mL. END-SYSTOLIC VOLUME: 28 mL. WALL MOTION: No focal wall motion abnormalities. OTHER: No other significant finding. IMPRESSION: NORMAL CARDIAC MUGA STUDY. NORMAL LEFT VENTRICULAR FUNCTION WITH VALUES ABOVE. TECHNICAL DOCUMENTATION: JOB ID: [id number] 2010 [employer]- All Rights Reserved Reading location - IP/workstation name: [email or web address]
== END ==
LOC: RAD 13:55
PROVIDERS: ATTEND Internal Medicine Hematology & Oncology
DX: Z08 Encounter for follow-up examination after completed treatment for malignant neoplasm (principal); Z79.899 Other long term (current) drug therapy
CPT/HCPCS: 78472; A9560; Q9969

== ENCOUNTER → 2020-05-12 | Outpatient (CLI) | payer MEDICARE, BC ==
--- NOTE | 2020-05-12 18:25 | RADIOLOGY REPORT (SQ) ---
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 Left ventricular functional analysis performed. LIMITATIONS: None. FINDINGS: LEFT VENTRICULAR FUNCTION: EJECTION FRACTION: 67%. END-DIASTOLIC VOLUME: 58 mL. END-SYSTOLIC VOLUME: 19 mL. WALL MOTION: No focal wall motion abnormalities. OTHER: No other significant finding. IMPRESSION: NORMAL CARDIAC MUGA STUDY. NORMAL LEFT VENTRICULAR FUNCTION WITH VALUES ABOVE. TECHNICAL DOCUMENTATION: JOB ID: [id number] 2010 [email or web address]- All Rights Reserved Reading location - IP/workstation name: [email or web address]
== END ==
LOC: RAD 09:41
PROVIDERS: ATTEND Nurse Practitioner Family
DX: C34.90 Malignant neoplasm of unspecified part of unspecified bronchus or lung (principal); C50.912 Malignant neoplasm of unspecified site of left female breast; T45.1X5D Adverse effect of antineoplastic and immunosuppressive drugs, subsequent encounter; Z79.899 Other long term (current) drug therapy
CPT/HCPCS: 78472; A9560; J1642; Q9969